=== PATIENT | female | born 1980 | race Caucasian/White ===

== ENCOUNTER 2018-06-02 11:32 | Emergency (ER) | payer OTHER ==
[2018-06-02 11:58] VITALS: BMI 39.0
--- NOTE | 2018-06-02 12:45 | C.PDOC ---
History Of Present Illness 37 year old female presents to ED with complaint of headache and double vision that has persisted for 4 days. Patient reports that she is not getting better. Patient was referred from the [facility]. She states that she normally takes Losartan, but she lost her insurance 3 months ago. She states that double vision is not normal for her. She states that she experiences dizziness when she walks, the headache becomes worse, and she has palpitations. Patient has a not taken anything for the pain, due to her fatty liver. She states that she has also been experiencing SOB and nausea. Patient denies any trauma, fever, chills, and vomiting. Time Seen by Provider: 06/02/18 11:51 Chief Complaint (Nursing): High Blood Pressure History Per: Patient History/Exam Limitations: no limitations Onset/Duration Of Symptoms: Days (4), Persistent Current Symptoms Are (Timing): Still Present Associated Symptoms: Dizziness, Headache, Other (Double vision) Past Medical History Reviewed: Historical Data, Nursing Documentation, Vital Signs Vital Signs: Last Vital Signs Temp 98.7 F 06/02/18 11:39 Pulse 99 H 06/02/18 11:39 Resp 18 06/02/18 11:39 BP 184/111 H 06/02/18 11:39 Pulse Ox 97 06/02/18 11:39 - Medical History PMH: HTN Surgical History: No Surg Hx - [facility] Procedures APPLICATION OF SPLINT (01/12/14) OP RED-INT FIX TIB/FIBUL (01/19/14) Family History: States: Unknown Family Hx - Social History Hx Tobacco Use: No Hx Alcohol Use: No Hx Substance Use: No - Immunization History Hx Tetanus Toxoid Vaccination: No Hx Influenza Vaccination: No Hx Pneumococcal Vaccination: No Review Of Systems Constitutional: Negative for: Fever, Chills, Weakness Eyes: Positive for: Vision Change (double vision) Cardiovascular: Positive for: Palpitations Respiratory: Positive for: Shortness of Breath Gastrointestinal: Negative for: Nausea, Vomiting Neurological: Positive for: Headache, Dizziness. Negative for: Weakness, Numbness Physical Exam - Physical Exam Appears: Well, Non-toxic, No Acute Distress Skin: Normal Color, Warm, Dry Head: Atraumatic, Normacephalic Neck: Normal ROM, Supple Chest: Symmetrical, No Deformity Cardiovascular: Rhythm Regular, No Murmur, Other (Tachycardic) Respiratory: No Accessory Muscle Use, No Rales, No Rhonchi, No Wheezing Gastrointestinal/Abdominal: Tenderness (Left upper quadrant) Extremity: Capillary Refill (<2 seconds) Extremity: Bilateral: Atraumatic, Normal Color And Temperature Pulses: Left Radial: Normal, Right Radial: Normal Neurological/Psych: Oriented x3, Normal Speech, Normal Cognition, Normal Cranial Nerves ED Course And Treatment - Laboratory Results Result Diagrams: 06/02/18 12:45 06/02/18 13:40 O2 Sat by Pulse Oximetry: 97 (RA) - CT Scan/US Head CT Other Rad Studies (CT/US): Interpreted By Me, Read By Radiologist CT/US Interpretation: Accession No. : [id number]. Patient Name / ID : SAROJ Manuel LAWRENCE / [id number]. Exam Date : 06/02/2018 12:51:05 ( Approved ). Study Comment : Sex / Age : F / 37Y. Creator : Reina Beckford. Dictator : Rupal Barkley MD. [employer] Crewmember : Wide Area Network Engineer : Rupal Barkley MD. Approver2 : Report Date : 06/02/2018 12:59:16. My Comment : . Date of service: 06/02/2018. PROCEDURE: CT HEAD WITHOUT CONTRAST. HISTORY: HEADACHE, VISUAL CHANGES, HTN. COMPARISON: None available. TECHNIQUE: Axial computed tomography images were obtained through the head/brain without intravenous contrast. Radiation dose: Total exam DLP = 1047.95 mGy-cm. This CT exam was performed using one or more of the following dose reduction techniques: Automated exposure control, adjustment of the mA and/or kV according to patient size, and/or use of iterative reconstruction technique. FINDINGS: Streak artifact obscures evaluation of the skull base. HEMORRHAGE: No intracranial h emorrhage. BRAIN: No mass effect or edema. Briggs-white matter differentiation appears intact. Please note that MRI with diffusion imaging is more sensitive in the detection of acute ischemic event. VENTRICLES: No hydrocephalus. CALVARIUM: Unremarkable. PARANASAL SINUSES: Unremarkable as visualized. No significant inflammatory changes. MASTOID AIR CELLS: Unremarkable as visualized. No inflammatory changes. OTHER FINDINGS: None. IMPRESSION: No acute intracranial pathology identified. Progress Note: Head CT and EKG ordered for patient. Patient given Norvasc PO and Tylenol PO. Labs ordered with UA and U-preg for patient. Disposition Counseled Patient/Family Regarding: Studies Performed, Diagnosis, Need For Followup, Rx Given - Disposition Referrals: [facility] [Outside] Disposition: HOME/ ROUTINE Disposition Time: 15:45 Condition: STABLE Additional Instructions: FOLLOW UP IN THE MEDICAL CLINIC IN 1-2 DAYS USE MEDICATION FOR HYPERTENSION EVERY DAY RETURN TO EMERGENCY ROOM IF YOUR SYMPTOMS BECOME WORSE/RETURN SEGUIR EN LA CLNICA MDICA EN 1-2 [place] UTILICE MEDICAMENTOS PARA LA HIPERTENSIN TODOS LOS [place] VUELVA A LA BRANDON DE EMERGENCIA SI VIRGIL SNTOMAS SE HACEN PEOR / RETORNO Prescriptions: amLODIPine [Norvasc] 5 mg PO DAILY #30 tab Instructions: High Blood Pressure (DC) Forms: [employer] (German) Print Language: FRISIAN - Clinical Impression Clinical Impression: Hypertension - Scribe Statement The provider has reviewed the documentation as recorded by the Scribe (Shoshana Rich) All medical record entries made by the Scribe were at my direction and personally dictated by me. I have reviewed the chart and agree that the record accurately reflects my personal performance of the history, physical exam, medical decision making, and the department course for this patient. I have also personally directed, reviewed, and agree with the discharge instructions and disposition.
[2018-06-02 12:48] LABS: BASO # 0.1 K/uL (0.0-0.2); BASO % 0.8 % (0.0-2.0); EOS # 0.2 K/uL (0.0-0.7); EOS % 2.1 % (0.0-4.0); HEMOGLOBIN 14.8 g/dL (11.0-16.0); LYMPH # 2.4 K/uL (1.0-4.3); LYMPH % 30.1 % (20.0-40.0); MEAN CELL VOLUME 91.5 fL (81.0-99.0); MEAN CORPUSCULAR HEMOGLOBIN 30.2 pg (27.0-31.0); MEAN CORPUSCULAR HGB CONC 33.1 g/dL (33.0-37.0); MEAN PLATELET VOLUME 7.9 fL (7.2-11.7); MONO # 0.6 K/uL (0.0-0.8); MONO % 7.1 % (0.0-10.0); NEUT # 4.8 K/uL (1.8-7.0); NEUT % 59.9 % (50.0-75.0); NRBC % 0.2 % (0.0-2.0); RBC 4.91 Mil/uL (3.80-5.20); RED CELL DISTRIBUTION WIDTH 13.6 % (11.5-14.5); WHITE BLOOD COUNT 7.9 K/uL (4.8-10.8)
--- NOTE | 2018-06-02 13:14 | CT ---
Date of service: 06/02/2018 PROCEDURE: CT HEAD WITHOUT CONTRAST. HISTORY: HEADACHE, VISUAL CHANGES, HTN COMPARISON: None available. TECHNIQUE: Axial computed tomography images were obtained through the head/brain without intravenous contrast. Radiation dose: Total exam DLP = 1047.95 mGy-cm. This CT exam was performed using one or more of the following dose reduction techniques: Automated exposure control, adjustment of the mA and/or kV according to patient size, and/or use of iterative reconstruction technique. FINDINGS: Streak artifact obscures evaluation of the skull base. HEMORRHAGE: No intracranial hemorrhage. BRAIN: No mass effect or edema. Briggs-white matter differentiation appears intact. Please note that MRI with diffusion imaging is more sensitive in the detection of acute ischemic event. VENTRICLES: No hydrocephalus. CALVARIUM: Unremarkable. PARANASAL SINUSES: Unremarkable as visualized. No significant inflammatory changes. MASTOID AIR CELLS: Unremarkable as visualized. No inflammatory changes. OTHER FINDINGS: None. IMPRESSION: No acute intracranial pathology identified.
[2018-06-02 13:40] LABS: HCG,QUALITATIVE URINE NEGATIVE (NEGATIVE)
[2018-06-02 13:46] LABS: SQUAMOUS EPITHIAL 1 /hpf (0-5); URINE BACTERIA OCC (<OCC); URINE BILIRUBIN NEGATIVE (NEGATIVE); URINE BLOOD 3+ (NEGATIVE); URINE CLARITY Clear (Clear); URINE COLOR Yellow (YELLOW); URINE GLUCOSE (UA) NORMAL (Normal); URINE LEUKOCYTE ESTERASE NEG Leu/uL (Negative); URINE PROTEIN NEGATIVE (NEGATIVE); URINE UROBILINOGEN NORMAL mg/dL (0.2-1.0)
[2018-06-02 14:10] LABS: ALB/GLOB RATIO 1.6 (1.0-2.1); ALBUMIN 4.3 g/dL (3.5-5.0); ALT/SGPT 249 U/L (9-52); AST/SGOT 164 U/L (14-36); BLOOD UREA NITROGEN 9 mg/dL (7-17); CALCIUM 9.4 mg/dl (8.6-10.4); GFR NON-AFRICAN AMERICAN > 60
[2018-06-02 15:54] VITALS: TEMP 98.4
[2018-06-02 16:27] VITALS: BP 156/80; PULSE 98; RESP 16; O2SAT 96
--- NOTE | 2018-06-06 22:37 | CARD ---
APPROVED REPORT Date of service: 06/02/2018 EKG Measurement Heart [id number] <Conclusion> Sinus rhythm with marked sinus arrhythmia Moderate voltage criteria for LVH, may be normal variant Borderline ECG
== END 2018-06-02 16:26 | disposition home or self-care (01) ==
LOC: C.ER 11:32
DX: I10 Essential (primary) hypertension (principal)

== ENCOUNTER 2018-07-01 07:45 | Outpatient (CLI) | payer OTHER | END 2018-07-01 07:46 | disposition home or self-care (01) | LOC: C.USIC 07:45 ==